=== PATIENT | male | born 1955 | race Caucasian/White ===

== ENCOUNTER → 2023-08-18 16:33 | Outpatient (CLI) | payer OTHER, SELFPAY ==
--- NOTE | 2023-08-18 16:38 | DI.MRI.S_ITS ---
PROCEDURE: MR KNEE RT WO CON INDICATIONS: Pain in right knee TECHNIQUE: Noncontrast sagittal PD fast spin echo and T2 fast spin echo with fat saturation, sagittal 3-D FLASH with fat saturation; coronal T1 spin echo and PD fast spin echo with fat saturation, and axial PD fast spin echo with fat saturation through the knee. COMPARISON: None. FINDINGS: Image quality: Excellent. Menisci: Oblique tear involving posterior horn of medial meniscus is seen extending to inferior articulating surface. Oblique tear involving anterior horn of lateral meniscus is also seen extending to inferior articulating surface. The meniscal root ligaments appear intact. Cruciate ligaments: The anterior and posterior cruciate ligaments appear intact. Medial structures: The medial collateral ligament appears mildly thickened. Visualized portions of the pes anserinus tendons appear normal. No abnormal bursal fluid. Lateral structures: The lateral collateral ligament is mildly thickened at its femoral insertion. The long and short heads of the biceps femoris tendon appear intact. The popliteus tendon appears normal. Iliotibial band appears normal. Anterior structures: Nonspecific subcutaneous soft tissue cystic structure is noted in antral medial aspect of proximal lower leg soft tissue and measures 1.3 x 0.9 cm in size. The quadriceps and patellar tendons appear intact. Low-grade partial-thickness tear involving medial patellofemoral ligament at its patellar insertion is seen. Patellar alignment is normal. No femoral trochlear dysplasia or ventral trochlear prominence. No edema in the infrapatellar fat pad. Bones and cartilage: No bone marrow contusions or fractures. 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 Joint space: There is small knee joint fluid. There is a Alvarez's cyst measures 2.1 x 2.3 cm in axial dimension. Possible tiny loose body in inferior portion of the Alvarez's cyst is seen and measures 5 mm in size. Normal appearing synovial plicae are incidentally noted. IMPRESSION: 1. Oblique tear involving posterior horn of medial meniscus extending to inferior articulating surface. Oblique tear involving anterior horn of lateral meniscus extending to inferior articulating surface. 2. The cruciate ligaments are intact. Low-grade MCL and LCL sprain. 3. Low-grade partial-thickness tear involving medial patellofemoral ligament at its patellar insertion. Nonspecific subcutaneous soft tissue cyst in antral medial aspect of proximal lower leg soft tissue at the level of distal patellar tendon insertion. 4. [id number] tricompartmental osteoarthritis and chondromalacia most notably in medial femoral tibial compartment. No fracture or dislocation. 5. Small joint effusion and small Alvarez's cyst as above. Possible tiny 5 mm loose body within inferior portion of Alvarez's cyst. Dictated by: Erick Bonner M.D. on 08/19/2023 at 10:40 Approved by: Erick Bonner M.D. on 08/19/2023 at 11:20
== END ==
PROVIDERS: Referring Provider Orthopaedic Surgery; Visit Provider Orthopaedic Surgery
DX: S83.241A Other tear of medial meniscus, current injury, right knee, initial encounter (principal); S83.281A Other tear of lateral meniscus, current injury, right knee, initial encounter; S83.411A Sprain of medial collateral ligament of right knee, initial encounter; S83.421A Sprain of lateral collateral ligament of right knee, initial encounter; S76.111A Strain of right quadriceps muscle, fascia and tendon, initial encounter; M17.11 Unilateral primary osteoarthritis, right knee; M94.261 Chondromalacia, right knee; M25.461 Effusion, right knee; M71.21 Synovial cyst of popliteal space [Baker], right knee; M25.561 Pain in right knee
CPT/HCPCS: 73721

== ENCOUNTER → 2023-11-02 11:35 | Outpatient (CLI) | payer OTHER, SELFPAY | PROVIDERS: PCP Family Medicine; Referring Provider Orthopaedic Surgery; Visit Provider Orthopaedic Surgery | DX: Z01.818 Encounter for other preprocedural examination (principal) | CPT/HCPCS: 93005; 93010 ==